=== PATIENT | male | born 1990 | race American Indian/Alaskan Native ===

== ENCOUNTER 2020-10-15 14:58 | Emergency (ER) | payer SELFPAY ==
--- NOTE | 2020-10-15 16:57 | Event Note ---
ED Screening Note Date of service: 10/15/20 Time: 16:56 ED Screening Note: Patient complains of shortness of breath and left lower rib pain x yesterday Rhonchi and wheezing noted on exam States history of asthma as a child Patient is a smoker, 1 PPD This initial assessment/diagnostic orders/clinical plan/treatment(s) is/are subject to change based on patients health status, clinical progression and re- assessment by fellow clinical providers in the ED. Further treatment and workup at subsequent clinical providers discretion. Patient/guardian urged not to elope from the ED as their condition may be serious if not clinically assessed and managed. Initial orders include: X-ray
[2020-10-15] MEDS ORDERED: IPRATROPIUM/ALBUTEROL SULFATE 3 ML AMPUL.NEB IH ONE (16:58)
--- NOTE | 2020-10-15 17:25 | XRay Report ---
CHEST 2 VIEWS INDICATION / CLINICAL INFORMATION: SOB, left lower lung/rib pain. COMPARISON: None available. FINDINGS: SUPPORT DEVICES: None. HEART / MEDIASTINUM: No significant abnormality. LUNGS / PLEURA: No significant pulmonary or pleural abnormality. No pneumothorax. ADDITIONAL FINDINGS: No significant additional findings. IMPRESSION: 1. No acute findings. Signer Name: Parag Horowitz MD Signed: 10/15/2020 5:21 PM Workstation Name: [id number]
[2020-10-15] MEDS ORDERED: dexAMETHasone 20 MG/5 ML VIAL IM ONE (18:26)
--- NOTE | 2020-10-15 18:26 | Emergency Department Report ---
Minor Respiratory - HPI Chief Complaint: Upper Respiratory Infection Stated Complaint: SHORTNESS OF BREATH Time Seen by Provider: 10/15/20 16:56 Minor Respiratory: Yes Rhinorrhea, Yes Sore Throat, Yes Able to Tolerate Fluids, Yes Cough, Yes Shortness of Breath, No Ear Pain, No Fever Other History: The patient was evaluated in the emergency department for symptoms described in the history of present illness. He/she was evaluated in the context of the global COVID-19 pandemic, which necessitated consideration that the patient might be at risk for infection with the virus that causes COVID-19. Institutional protocols and algorithms that pertain to the evaluation of patients at risk for COVID-19 are in a state of rapid change based on information released by regulatory bodies including the CDC and federal and [facility] organizations. These policies and algorithms were followed during the patient's care in the emergency department. Please note that these policies, procedures and recommendations changed on a rapid basis. 30-year-old - [place] male presents to the emergency room reporting he is having wheezing, shortness of breath, cough slight sore throat and runny nose and nasal congestion since yesterday. Patient states that he had used his mother's inhaler yesterday it helped just a little bit still having wheezing. Patient reports he had asthma as a child growing out of it. Does not know when the last time he said. Denies any known drug allergies. ED Review of Systems ROS: Stated complaint: SHORTNESS OF BREATH Other details as noted in HPI ED Past Medical Hx - Past Medical History Previous Medical History?: No - Social History Smoking Status: Current Every Day Smoker Substance Use Type: Marijuana Minor Respiratory Exam - Exam General: Vital signs noted. No distress. Alert and acting appropriately. HEENT: Yes Moist Mucous Membranes, No Pharyngeal Erythema, No Pharyngeal Exudates, No Rhinorrhea, No Conjuctival Injection, No Frontal Tenderness, No Maxillary Tenderness Neck: Yes Supple, No Adenopathy Lungs: Yes Wheezes, Yes Ronchi, Yes Use of Accessory Muscles Heart: Yes Regular, No Murmur Abdomen: Yes Normal Bowel Sounds, No Tenderness, No Peritoneal Signs Skin: No Rash, No Edema Neurologic: Alert and oriented, no deficits. Musculoskeletal: Unremarkable. ED Course Vital Signs 10/15/20 16:54 Temperature 97.9 F Pulse Rate 72 Respiratory 20 Rate Blood Pressure 127/70 O2 Sat by Pulse 95 Oximetry - Reevaluation(s) Reevaluation #1: 10/15/20 19:50 Patient still has expiratory wheezing with rhonchorous. Reevaluation #2: 10/15/20 21:14 Patient reassessed for shortness of breath patient still has rhonchorous end expiratory wheeze as well as a long expiratory. Patient is currently doing this second round of Atrovent and albuterol. ED Medical Decision Making - Radiology Data Radiology results: report reviewed Patient: ISAIAH ZHAO MR#: [id number] : 1990 Acct:[id number] Age/Sex: 30 / M ADM Date: 10/15/20 Loc: ED Attending Dr: Ordering Physician: HEATHER MARRUFO Date of Service: 10/15/20 Procedure(s): XR chest routine 2V Accession Number(s): [id number] cc: HEATHER MARRUFO Fluoro Time In Minutes: CHEST 2 VIEWS INDICATION / CLINICAL INFORMATION: SOB, left lower lung/rib pain. COMPARISON: None available. FINDINGS: SUPPORT DEVICES: None. HEART / MEDIASTINUM: No significant abnormality. LUNGS / PLEURA: No significant pulmonary or pleural abnormality. No pneumothorax. ADDITIONAL FINDINGS: No significant additional findings. IMPRESSION: 1. No acute findings. Signer Name: Parag Horowitz MD Signed: 10/15/2020 5:21 PM Workstation Name: [id number] Transcribed By: SS Dictated By: Parag Horowitz MD Electronically Authenticated By: Parag Horowitz MD Signed Date/Time: 10/15/201720 DD/ 19 TD/TT: - Medical Decision Making 30-year-old -[place] male presents to the emergency room reporting he is having wheezing, shortness of breath, cough slight sore throat and runny nose and nasal congestion since yesterday. Patient states that he had used his mother's inhaler yesterday it helped just a little bit still having wheezing. Patient reports he had asthma as a child growing out of it. Does not know when the last time he said. Denies any known drug allergies. Patient be started on a DuoNeb dexamethasone 10 mg IM. Chest x-ray was ordered and reviewed no acute abnormalities. Critical care attestation.: If time is entered above; I have spent that time in minutes in the direct care of this critically ill patient, excluding procedure time. ED Disposition Condition: Stable Referrals: PRIMARY CARE, [Primary Care Provider] - 3-5 Days
[2020-10-15] MEDS ORDERED: IPRATROPIUM 0.02% NEBU 2.5 ML IH ONE ×2 (19:48→19:50)
[2020-10-15] MEDS ORDERED: ALBUTEROL 2.5 MG/3 ML NEBU IH ONE (19:49)
[2020-10-15 23:43] VITALS: BP 133/81
== END 2020-10-16 01:21 | disposition home or self-care (01) ==
LOC: ED 14:58
DX: R06.02 Shortness of breath (principal); R06.2 Wheezing; R05 Cough; F17.200 Nicotine dependence, unspecified, uncomplicated; F12.90 Cannabis use, unspecified, uncomplicated
CPT/HCPCS: 71046; 94640; 94644; 96372; 99283; J1100